=== PATIENT | female | born 1975 | race Caucasian/White ===

== ENCOUNTER 2016-11-21 09:49 | Emergency (ER) | payer SELFPAY ==
[2016-11-21 09:55] VITALS: BP 93/75; PULSE 94; RESP 18; TEMP 97.9; O2SAT 100
[2016-11-21] MEDS ORDERED: AMOXICILLIN/CLAVULANATE POT 875/125 MG TAB PO ONE (10:24)
--- NOTE | 2016-11-21 10:27 | EDPHY ---
H & P Time Seen by Provider: 11/21/16 10:15 HPI/ROS: CHIEF COMPLAINT: Dog bite right hand HISTORY OF PRESENT ILLNESS: 41-year-old immunocompetent female with up-to-date tetanus was breaking up a fight between her dog and another dog when she was bitten on the right hand, specifically right middle digit proximal phalanx. She is complaining of underlying osseous pain, pain with range of motion. No paresthesia. No foreign body sensation. Occurred shortly prior to arrival. PHYSICAL EXAM (Prior to examination, patient consented to physical exam, hands were washed and my usual and customary physical exam procedures followed) 1) GENERAL: Well-developed, well-nourished, alert and oriented. Appears to be in no acute distress. 2) HEAD: Normocephalic 3) HEENT: sclera anicteric 4) LUNGS: Breathing comfortably. 5) SKIN: puncture wound right middle digit proximal phalanx lateral aspect 6) MUSCULOSKELETAL: Tender to palpation right 3rd digit proximal phalanx with puncture wound noted lateral to this. Negative kanavel. No signs of infection. 7) NEUROLOGIC: Full sensation two-point discrimination intact distally Smoking Status: Never smoked Constitutional: Initial Vital Signs Temperature (C) 36.6 C 11/21/16 09:53 Heart Rate 94 11/21/16 09:53 Respiratory Rate 18 11/21/16 09:53 Blood Pressure 93/75 L 11/21/16 09:53 O2 Sat (%) 100 11/21/16 09:53 O2 Delivery Mode Room Air Allergies/Adverse Reactions: No Known Allergies Allergy (Verified 11/21/16 09:52) Home Medications: Medication Instructions Recorded Amoxicillin/Clavulanate Pot 875 mg PO BID #10 tab 11/21/16 [Augmentin 875 mg tab] Hydrocodone/APAP 5/325 [[place] 1 tab PO Q6 PRN #2 tab 11/21/16 5/325 (RX)] MDM/Departure - MDM Imaging Results: Imaging Impressions Hand X-Ray 11/21/16 10:24 Impression: Third digit soft tissue swelling with no acute osseous abnormality or radiopaque foreign body. Images reviewed myself Imaging: I viewed and interpreted images myself Procedures: Procedure: Digital nerve block Indications: Anesthetic prior to wound cleaning Area was prepped in usual fashion. 1% plain lidocaine infused in usual and customary manner for digital nerve block achieving anesthesia distally Procedure: Splint A aluminum finger splint was applied by ER soil field technician which I think will assist with the patient's discomfort. After application of the splint I returned and re-examined the patient. The splint was adequately immobilizing the joint and distal to the splint the patient's circulation and sensation were intact. Patient shows no signs of compartment syndrome. Was given orthopedic precautions. Medications Given: Discontinued Medications Amoxicillin/Clavulanate Potassium (Augmentin 875mg) 875 mg PO EDNOW ONE PRN Reason: Protocol Stop: 11/21/16 10:25 Last Admin: 11/21/16 10:29 Dose: 875 mg ED Course/Re-evaluation: Re-evaluation after wound cleansed. Given wound precautions. No signs of infection at this time. Started on prophylactic Augmentin. Wound has been cleansed will be allowed to heal via secondary intention. Patient requests to analgesic pills which have been prescribed her - Depart Disposition: Home, Routine, Self-Care Clinical Impression: Dog bite of right hand Qualifiers: Encounter type: initial encounter Qualified Code(s): S61.451A - Open bite of right hand, initial encounter Condition: Good Instructions: Animal Bite (ED) Additional Instructions: Return to the ER if you develop redness, swelling, discharge, warmth to the wound, red streaks going up your arm , or any other symptoms that concern you. Keep the finger elevated above the level of your shoulders as much as possible for the next 2 days Prescriptions: Amoxicillin/Clavulanate Pot [Augmentin 875 mg tab] 875 mg PO BID #10 tab Hydrocodone/APAP 5/325 [[place] 5/325 (RX)] 1 tab PO Q6 PRN #2 tab PRN Reason: Pain, Severe Referrals: Fani Sage MD [Primary Care Provider] - 1-2 days without fail
== END 2016-11-21 10:55 | disposition home or self-care (01) ==
PROC: 3E0T3CZ (ICD-10-PCS; principal; 2016-11-21)
DX: S61.451A Open bite of right hand, initial encounter (principal); W54.0XXA Bitten by dog, initial encounter; Y99.8 Other external cause status; Y93.89 Activity, other specified

== ENCOUNTER 2018-06-25 11:33 | Emergency (ER) | payer BC ==
[2018-06-25 12:48] VITALS: BP 123/86
--- NOTE | 2018-06-25 12:51 | EDPHY ---
H & P Stated Complaint: Mild facial weakness Time Seen by Provider: 06/25/18 12:50 HPI/ROS: CHIEF COMPLAINT: Mild left facial weakness HISTORY OF PRESENT ILLNESS: The patient presents the emergency department with mild left facial weakness for the past day. She denies any significant numbness. She reports a mild headache yesterday which resolved. The patient denies any peripheral numbness or weakness. The patient denies additional acute complaints. The patient does get Botox to her forehead. The patient denies any recent upper respiratory symptoms or other infectious complaints. She has had a month of mild diarrhea. REVIEW OF SYSTEMS: A comprehensive 10 point review of systems is otherwise negative aside from elements mentioned in the history of present illness. Source: Patient Exam Limitations: No limitations - Personal History LMP (Females 10-55): 22-28 Days Ago Current Tetanus Diphtheria and Acellular Pertussis (TDAP): Yes - Medical/Surgical History Hx Asthma: No Hx Chronic Respiratory Disease: No Hx Diabetes: No Hx Cardiac Disease: No Hx Renal Disease: No Hx Cirrhosis: No Hx Alcoholism: No Hx HIV/AIDS: No Hx Splenectomy or Spleen Trauma: No Other PMH: anxiety. "low iron". recurrent skin infections r/t low iron - Social History Smoking Status: Never smoked - Physical Exam Exam: General Appearance: Alert, no distress Eyes: Pupils equal and round no pallor or injection ENT, Mouth: Mucous membranes moist Respiratory: There are no retractions, lungs are clear to auscultation Cardiovascular: Regular rate and rhythm Gastrointestinal: Abdomen is soft and nontender, no masses, bowel sounds normal Neurological: Alert and oriented x4, 5/5 strength noted all 4 extremities, normal sensory exam, cranial nerves 2-12 intact with the exception of a questionable mild left cranial nerve 7 palsy. Patient is unable to wrinkle her forehead secondary to her Botox. Skin: Warm and dry, no rashes Musculoskeletal: Neck is supple nontender Extremities: symmetrical, full range of motion Psychiatric: Patient is oriented X 3, there is no agitation Constitutional: Initial Vital Signs Temperature (C) 36.7 C 06/25/18 11:38 Heart Rate 74 06/25/18 11:38 Respiratory Rate 18 06/25/18 11:38 Blood Pressure 110/81 H 06/25/18 11:38 O2 Sat (%) 97 06/25/18 11:38 O2 Delivery Mode Room Air Allergies/Adverse Reactions: No Known Allergies Allergy (Verified 06/25/18 11:38) Home Medications: Medication Instructions Recorded Valacyclovir HCl [Valtrex] 1,000 mg PO TID #21 tab 06/25/18 predniSONE [prednisone 20mg (RX)] 3 tab PO DAILY #21 tab 06/25/18 Medical Decision Making ED Course/Re-evaluation: Patient presents the ED with very mild asymmetry noted to her face. I do believe it is a case of a very mild Atkinson's palsy however I did offer the patient an MRI for complete characterization of her symptoms. She prefers to decline the study at this point time and be treated presumptively for mild Atkinson' s palsy. She has been given customary aftercare instructions and return precautions. She is also given contact number of our neurologist for follow-up. She is nontoxic and well-appearing. She has a otherwise normal neurologic examination. There is no clinical evidence of meningitis. Patient is competent to decline MRI which admittedly is low yield. She is comfortable returning to the ED for any progressive symptoms which would warrant further workup. Departure - Departure Disposition: Home, Routine, Self-Care Clinical Impression: Atkinson's palsy Condition: Good Instructions: Atkinson Palsy (ED) Additional Instructions: 1. Return to the ED immediately for any worsening headache, numbness or weakness involving the other side your face, arms or legs. 2. Please follow up with a neurologist you have been referred to for any ongoing mild symptoms. 3. Please take medications as prescribed for presumptive mild Atkinson's palsy. Referrals: Fani Sage MD [Primary Care Provider] - As per Instructions Rubén Maria MD [Medical Doctor] - As per Instructions
== END 2018-06-25 13:09 | disposition home or self-care (01) ==
DX: G51.0 Bell's palsy (principal)